=== PATIENT | male | born 1975 | race Caucasian/White ===

== ENCOUNTER → 2020-06-20 16:10 | Outpatient (CLI) | payer OTHER, SELFPAY ==
--- NOTE | ~2020-06-20 | XR_ITS ---
EXAMINATION: XR knee RT 3V DATE: 06/20/2020 16:29 INDICATION: Right knee pain. TECHNIQUE: 3 views of right knee were obtained. COMPARISON: None. FINDINGS: Bone alignment is normal. No fracture. There is mild tricompartmental osteoarthritis charac terized by tiny marginal osteophytes. No knee joint effusion. IMPRESSION: 1. Mild right knee osteoarthritis. Reviewed, dictated and finalized at location A.
== END ==
PROVIDERS: PCP Internal Medicine; Visit Provider Internal Medicine
DX: M17.11 Unilateral primary osteoarthritis, right knee (principal)
CPT/HCPCS: 73562

== ENCOUNTER 2022-09-21 10:29 | Outpatient (CLI) | payer OTHER, SELFPAY ==
--- NOTE | ~2022-09-21 | XR_ITS ---
EXAMINATION: XR lumbar spine 2-3V DATE: 09/21/2022 10:50 INDICATION: Dorsalgia, unspecified TECHNIQUE: Anteroposterior and lateral views of the lumbar spine, and cone-down lateral view of the l umbosacral junction were obtained. COMPARISON: 09/05/2006 FINDINGS: Bone alignment is normal. There is no fracture. There is chronic mild anterior wedging at t he thoracolumbar junction. Small degenerative osteophytes project from the anterior endplates of mult iple vertebral bodies. There is mild loss of intervertebral disc space height at L5-S1. Mild facet radha int osteoarthritis is noted in the lower lumbar spine. IMPRESSION: 1. Mild lumbar spondylosis without acute findings. Reviewed, dictated and finalized at location B.
== END 2022-09-21 10:30 | disposition home or self-care (01) ==
PROVIDERS: PCP Internal Medicine; Visit Provider Internal Medicine
DX: M47.896 Other spondylosis, lumbar region (principal)
CPT/HCPCS: 72100

== ENCOUNTER 2024-06-04 10:56 | Outpatient (CLI) | payer BC, SELFPAY ==
--- OUTSIDE RECORDS SUMMARY | 2024-06-04 12:55 | XMS_ITS | Clinical Summary ---
Author Organization [facility] Address [facility] [place] [address] Care Team Providers Care Parcel Post Weigher Name Role Phone Elijah Martins MD Primary Care Provider [phone] Allergies No known active allergies Medications atorvastatin 40 MG tablet Take 40 mg by mouth daily. 08/21/2019 Active escitalopram 10 MG tablet Take 10 mg by mouth daily. 09/20/2019 Active omeprazole 40 MG capsule Take 40 mg by mouth daily. 08/21/2019 Active valsartan 320 MG tablet Take 320 mg by mouth daily. 08/21/2019 Active omega-3 fatty acid 500 MG capsule Take 500 mg by mouth daily. Active Multiple Vitamins-Minera ls (MULTIVITAMIN ADULT OR) Take 1 tablet by mouth daily. Active HYDROcodone-susy taminophen 5-325 MG tabletIndicatio ns:Acute Pain < 7 Day Supply Take 1-2 tablets by mouth every 4 (four) hours as needed for Pain. Indications: Acute Pain < 7 Day Supply For Moderate Pain 24 tablet 02/12/2020 Active Active Problems No known active problems Immunizations Name Administration Dates Next Due Influenza Adult (Generic) 12/27/2015,2015 Family History Medical History Relation Comments Cancer Father Diabetes Father Hypertension Father Diabetes Maternal Grandfather Hyperlipidemia Maternal Grandfather Diabetes Maternal Grandmother Hypertension Maternal Grandmother Hypertension Mother Diabetes Paternal Grandfather Diabetes Paternal Grandmother Hyperlipidemia Paternal Grandmother Hypertension Paternal Grandmother Relation Status Comments Father Maternal Grandfather Maternal Grandmother Mother Paternal Grandfather Paternal Grandmother Social History Tobacco Use Types Packs/Day Years Used Date Smoking Tobacco: Never Smokeless Tobacco: Never Alcohol Use Standard Drinks/Week Comments Yes 0 (1 standard drink = 0.6 oz pur e alcohol) 2-3/week PHQ-2 Answer Date Recorded PHQ-2 Score - If the patient scores above 3, please move on to questions 3-9 0 02/17/2020 Sex and Gender Information Value Date Recorded Sex Assigned at Not on file Legal Sex Male 8:27 AM CDT Gender Identity Not on file Sexual Orientation Not on file Last Filed Vital Signs Vital Sign Reading Time Taken Comments Blood Pressure 130/83 02/17/2020 10:42 AM RIB MATCHER AND FITTER Pulse 65 02/17/2020 10:42 AM RIB MATCHER AND FITTER Temperature 36.2 C (97.1 F) 02/17/2020 10:16 AM RIB MATCHER AND FITTER Respiratory Rate 16 02/12/2020 11:3 5 AM RIB MATCHER AND FITTER Oxygen Saturation 99% 02/12/2020 11: 35 AM RIB MATCHER AND FITTER Inhaled Oxygen Concentration - - Weight 136.4 kg (300 lb 9.6 oz) 020 10:16 AM RIB MATCHER AND FITTER Height 177.8 cm (5' 10 ) 02/17/2020 10: 16 AM RIB MATCHER AND FITTER Body Mass Index 43.13 02/17/2020 10:16 AM RIB MATCHER AND FITTER Plan of Treatment Health Maintenance Due Date Last Done Comments Colorectal Cancer Screening Colonoscopy (10 Years) 1974 Annual Physical 1977 Hepatitis C 01/06/1992 DTaP, Tdap and Td Vaccines ( 1 - Tdap) 1993 Hepatitis B Vaccines (1 of 3 - 19+ 3-dose series) 1993 COVID-19 Vaccine (2023-2 5 season) 2023 Influenza Adult (#1) 2023 01/09/2019, 12/27/2015, 2015 Zoster Vaccines (1 of 2) 01/06/2024 Meningococcal B Vaccine Aged Out No l onger eligible based on patient's age to complete this topic Meningococcal Vaccine Aged Out No edwin evangelist eligible based on patient's age to complete this topic Pneumococcal Vaccine: Pediatrics (0 to 5 Years) and At-Risk Patients (6 to 64 Years) Aged Out No longer eligible b ased on patient's age to complete this topic RSV Immunizations Under 20 Months Aged Out No longer eligible b ased on patient's age to complete this topic Insurance [employer] Care Teams Parcel Post Weigher Relationship Specialty Start Date End Date Elijah Martins MD [address] [place] [address] PCP - General INTERNAL MEDICINE 11/05/19
--- OUTSIDE RECORDS SUMMARY | 2024-06-04 12:55 | XMS_ITS | Clinical Summary ---
Author Organization [facility] Address [address] [facility] Attn: Epic Prelude ADT [place] [address] Care Team Providers Care Architectural Drafter Name Role Phone Unavailable Primary Care Provider Unavailabl e Medications triamcinolone acetonide (KENALOG) 0.1 % Cream Apply to affected area twice daily 30 Gram 10/30/2021 6:43 PM CDT 2 Active loteprednol etabonate (LOTEMAX) 0.5 % gel ADMINISTER 1 DROP IN EACH EYE 4 TIMES DAILY FOR 7 DAYS, TAPER DIRECTED. 5 Gram 07/19/2022 10:18 AM CDT 3 Active Immunizations Immunization Administration Dates Next Due INFLUENZA VACCINE QUADRIVALENT 6 MOS UP PF IM ,12/03/2021 Social History Tobacco Use Types Packs/Day Years Used Date Smoking Tobacco: Never Assessed Sex and Gender Information Value Date Recorded Sex Assigned at Not on file Legal Sex Male 3:27 PM CDT Gender Identity Not on file Sexual Orientation Not on file Plan of Treatment Health Maintenance Due Date Last Done Comments DTAP/TDAP/TD VACCINES (1 - Tdap) 1993 HEPATITIS B VACCINES (1 of 3 - 19+ 3-dose series) 1993 COLORECTAL SCREENING 2019 Colorectal Cancer Screening 2019 FIT-DNA Q 3 years 2019 FIT/FOBT Q 1 year 2019 Flex Sig/CT Colonography Q 5 years 2019 INFLUENZA VACCINE (#1) 2023 3, 12/03/2021 ZOSTER VACCINE (1 of 2) 01/06/2024 PNEUMOCOCCAL VACCINE 0-49 YEARS Aged Out No longer eligible b ased on patient's age to complete this [place] [address] [employer]
--- OUTSIDE RECORDS SUMMARY | 2024-06-04 12:55 | XMS_ITS | Encounter Summary ---
Author Organization [facility] Address [address] [place] [id number] Care Team Providers Care Production Maintenance Technician Name Role Phone Elijah Martins MD Primary Care Provider [phone] Encounter Details Date Type Department Care Team (Late st Contact Info) Description 02/06/2020 Prep for Procedure [facility] [address] [address] [place], [place] [id number] Jamaal Núñez MD [address] [place], [place] [id number] Social History Tobacco Use Types Packs/Day Years Used Date Smoking Tobacco: Never Smokeless Tobacco: Never Alcohol Use Standard Drinks/Week Comments Yes 0 (1 standard drink = 0.6 oz pur e alcohol) 2-3/week Sex and Gender Information Value Date Recorded Sex Assigned at Not on file Legal Sex Male 8:27 AM CDT Gender Identity Not on file Sexual Orientation Not on file COVID-19 Exposure Response Date Recorded In the last month, have you been in contact with someone who was confirmed or suspected to have Coronavirus / COVID-19? No / Unsure 02/06/2020 1:22 PM PHARMACY CASHIER documented as of this encounter Plan of Treatment Not on file documented as of this encounter Results * PRE-SURGICAL/PRE-PROCEDURE CORONAVIRUS (COVID 19) (02/09/2020 8:27 AM PHARMACY CASHIER) CORONAVIRUS SARS COV 2 PCR (RESP) NOT DETECTED NOT DETECTED 02/10/2020 7:36 PM PHARMACY CASHIER [facility] Comment: A Not Detected (negative) test result for this test means that SARS- CoV-2 RNA was not present in the specimen above the limit of detection. A negative result does not rule out the possibility of COVID-19 and should not be used as the sole basis for treatment or patient management decisions. If COVID-19 is still suspected, based on exposure history together with other clinical findings, re-testing should be considered in consultation with public health authorities. Laboratory test results should always be considered in the context of clinical observations and epidemiological data in making a final diagnosis and patient management decisions. Please review the Fact Sheets and FDA authorized labeling available for health care providers and patients using the following websites: [email or web address]/[email or web address]-19/HCP/NAAT/fact-sheet2 [email or web address]://[email or web address].Connectbeam/home/Covid-19/Patients/NAAT/ fact-sheet2 This test has been authorized by the FDA under an Emergency Use Authorization (EUA) for use by authorized laboratories. Due to the current public health emergency, [employer] is receiving a high volume of samples from a wide variety of swabs and media for COVID-19 testing. In order to serve patients during this public health crisis, samples from appropriate clinical sources are being tested. Negative test results derived from specimens received in non-commercially manufactured viral collection and transport media, or in media and sample collection kits not yet authorized by FDA for COVID-19 testing should be cautiously evaluated and the patient potentially subjected to extra precautions such as additional clinical monitoring, including collection of an additional specimen. Methodology: Nucleic Acid Amplification Test (NAAT) includes RT-PCR or TMA Additional information about COVID-19 can be found at the [employer] website: [email or web address].[email or web address]/Covid19. Test performed at Segment [address] [id number] Director: JULIO C VELA DO,MPH FIRST TEST YES 02/09/2020 10:34 AM [facility] EMPLOYED IN HEALTHCARE YES 02/09/2020 10:34 AM [facility] SYMPTOMATIC DEFINED BY CDC NO 02/09/2020 10:34 AM [facility] DATE OF SYMPTOM ONSET UNKNOWN 02/09/2020 10:36 AM [facility] HOSPITALIZATION STATUS NO 02/09/2020 10:34 AM PHARMACY CASHIER [facility] PATIENT IN ICU NO 02/09/2020 10:34 AM PHARMACY CASHIER [facility] RESIDENT OF CONGREGATE CARE NO 02/09/2020 10:34 AM PHARMACY CASHIER [facility] UNKNOWN 02/09/2020 10:36 AM PHARMACY CASHIER [facility] PATIENT'S RACE WHITE OR 02/09/2020 10:34 AM PHARMACY CASHIER [facility] ETHNICITY NONHISPANIC 02/09/2020 10:34 AM PHARMACY CASHIER [facility] SOURCE (QST) NASOPHARYNGEAL SWAB 02/09/2020 10:34 AM PHARMACY CASHIER [facility] NASOPHARYNGEAL SWAB / Unknown 02/09/2020 8:27 AM PHARMACY CASHIER us Jamaal Núñez MD MICROBIOLOGY - GENERAL ORDERABL ES Final Result [facility] [address] [place] [address], Segment [address] documented in this encounter Visit Diagnoses Diagnosis Preop examination- Primary Preoperative examination, unspecified documented in this encounter Additional Health Concerns Infection Onset Date Last Indicated Resolved Time COVID-19 Rule Out 02/09/2020 02/09/2020 02/10/2020 7:36 PM PHARMACY CASHIER documented as of this encounter Care Teams Production Maintenance Technician Relationship Specialty Start Date End Date Elijah Martins MD [address] [place] [address] PCP - General INTERNAL MEDICINE 11/05/19 documented as of this encounter
--- NOTE | 2024-07-01 21:03 | WPDSLEEPSTUD ---
Sleep Study Date of Study: 06/04/24 Ordering Provider: Tra Licea APRN Interpreting Physician: Mary Ellen Scott MD Sleep Study Type: Split Polysomnogram Height: 1.78 m Weight: 138.346 kg Body Mass Index: 43.7 Neck Circumference (inches): 20 Sumner: 10 Reason for Sleep Study Obstructive sleep apnea, difficulty tolerating CPAP previously, presents for split night study Sleep History Luiz Parra Jr is a 49-year-old man with known obstructive sleep apnea. He has medical comorbidities including hypertension, GERD, depression, hyperlipidemia. He is a icu tech. He had difficulty tolerating CPAP when he initially tried it. His work schedule has changed, now working days. He continues to have daytime sleepiness and nighttime difficulty breathing so he wanted to return for further evaluation. He had 3 previous sleep studies. He has also gained weight. He occasionally awakens from sleep feeling short of breath. He occasionally wakes at night with heartburn, belching or coughing.??He constantly snores, and frequently snores loudly enough that others complain. He rarely has trouble sleeping when he has a cold. He occasionally wakes up gasping for breath during the night. He frequently has breathing problems at night. He occasionally sweats excessively at night. He occasionally notices his heart pounding or beating irregularly during the night. He rarely falls asleep during the day. He never falls asleep involuntarily, never falls asleep while driving. He never experiences loss of muscle tone with strong emotion. He rarely has daytime difficulty at work due to excessive sleepiness. He never feels paralyzed on waking or falling asleep. He never experiences vivid dreams upon waking or falling asleep. He never feels afraid of going to sleep. He rarely has nightmares. He rarely recalls his dreams. He occasionally has thoughts racing through his mind. He occasionally feels sad or depressed. He rarely feels anxiety. He occasionally notices parts of his body jerk. He rarely kicks during the night. He never feels crawling or aching feelings in his legs. He rarely feels leg pain at night. He never has morning jaw pain, never grinds his teeth at night. He occasionally feels bothered by pain during the day, occasionally awakened by pain during the night. He frequently wakes up feeling stiff in the morning, and he occasionally wakes feeling sore or achy. He frequently awakens with pain in his neck, spine, or joints. He has concentration difficulties and fatigue. He is drowsy for 3 hours after waking. His uvula has been enlarged since his tonsillectomy in the late 1980s. Any time it becomes inflamed from allergies or a cold, his airway is partially blocked. He can even touch the front of his tongue with his uvula when it is inflamed. His uvula seems to vibrate easily and worsens his snoring. Normal bedtime is 9:00 p.m., falling asleep within 30 minutes, waking between 1 and 3 times at night. When he awakens at night, he may reposition himself and try to return to sleep. He is usually able to return to sleep within several minutes. Wake time is 6:30 a.m.. He typically gets between 7 and 10 hours of sleep per night. He usually takes naps on weekends, and a nap may last several hours. He does not feel refreshed after a nap. Habits:??Tobacco: Never smoker Caffeine: 4-8 servings per day Alcohol: 0-1 daily Recreational substances: none PMFSH Past Medical History Medical History Obesity Hyperlipidemia Hyperglycemia Right wrist pain Rectal bleeding DEX (obstructive sleep apnea) Morbid obesity Hypertension Hyperlipidemia GERD (gastroesophageal reflux disease) Depression Surgical History Surgical History History of carpal tunnel release of both wrists (~2003) Family History Family History Father Family history of diabetes mellitus in first degree relative Mother No problems noted. Sibling No problems noted. Other Family history of malignant neoplasm of esophagus Family history of thyroid disease Social History Social History Smoking status: Never smoker Second hand tobacco smoke exposure: No Alcohol intake: current Drinks per week: 3 Substance use: never Substance use type: does not use Do You Feel Safe in your Home?: Yes Lack of Transportation: No Lack of Food: Never True Current Housing: I Have Housing Concerned About Future Housing: No Difficulty Paying Gas/Electric Bills: No Difficulty Paying for Meds: No Currently Unemployed: No Education: High School Diploma/GED Difficulty w/ Childcare or Family Care: No Living arrangements: with family Occupation/Education: occupation 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 Gender identity (if verbalized by the patient): Male Medications Home Medications ?Medication ?Instructions ?Recorded ?Confirmed ?Type multivitamin (Daily Multi-Vitamin 1 tablet PO DAILY 12/27/21 04/27/24 History tablet) omega 6-pbm-jjn-fish oil 1,200 mg cap PO 12/27/21 04/27/24 History (144 mg-216 mg) capsule (Fish Oil) valsartan 320 1 tablet PO DAILY #90 tabs 07/24/23 04/27/24 Rx mg-hydrochlorothiazide 12.5 mg tablet escitalopram oxalate 10 mg tablet 10 mg PO DAILY #90 tabs 03/03/24 04/27/24 Rx omeprazole 40 mg capsule,delayed 40 mg PO DAILY #90 caps 03/16/24 04/27/24 Rx release amlodipine 5 mg tablet 5 mg PO DAILY #90 tabs 03/26/24 04/27/24 Rx atorvastatin 40 mg tablet See Rx Instructions .Route 04/01/24 04/27/24 Rx .COMPLEX #90 tabs eszopiclone 3 mg tablet 3 mg PO ONCE #1 tablet 04/27/24 04/27/24 Rx Sleep Procedure A split night polysomnogram using the [employer]Storm SleepHachimenroppi multi-channel system recorded the standard physiologic parameters including EEG, EOG, submentalis EMG, anterior tibialis EMG, EKG, body position, nasal and oral airflow using nasal pressure sensor and thermistor. Respiratory parameters of chest and abdominal movements were recorded with Respiratory Inductance Plethysmography belts. Oxygen saturation was recorded by pulse oximetry. Video monitoring was also performed. Sleep stages, periodic limb movements, and EEG arousals were scored in 30 second epochs according to the criteria of the AASM Scoring Manual. The Apnea-Hypopnea Index was calculated using CMS guidelines for definition of hypopnea while scoring respiratory events. This patient self-administered Lunesta 3 mg at the beginning of the study. After the baseline portion the patient met criteria for a titration with an AHI of 11.5 and desaturation to 79%. His initial mask was a large ResMed AirTouch F20 fullface mask however toward the end of the night he switched it to a medium Mirage Quattro fullface mask which improved his air leak. At CPAP 19 cm, the patient spent 68.5 minutes in bed, 4 minutes awake, 39.5 minutes in non-REM, 25 minutes in REM with a sleep efficiency of 94.2%. The residual apnea-hypopnea index was 6.5. The lowest saturation was 90%. The patient had supine REM at this pressure. Sleep Architecture During the diagnostic portion of the study, the total recording time was 183.5 minutes. The total sleep time was 128.0 minutes. Sleep latency was 29.0 minutes. He had no REM therefore no REM latency. Sleep Efficiency was 69.8%. The patient had 23 awakenings for an awakening index of 10.8. Wake after sleep onset time was 26.5 minutes. The patient spent 17.5 minutes, 13.7% of total sleep time in Stage N1. The patient spent 110.0 minutes, 85.9% in Stage N2. The patient spent 0.5 minutes, 0.4% in Stage N3. The patient spent no time in Stage REM sleep. At 01:53:23 AM the patient was placed on PAP treatment and was titrated at pressures ranging from CPAP 5 to CPAP 19 cm. During the treatment portion of the study, the total recording time was 291.3 minutes. The total sleep time was 235.5 minutes. Sleep latency was 5.0 minutes. REM latency was 150.5 minutes. Sleep Efficiency was 80.8%. Wake after Sleep Onset time was 50.5 minutes. The patient spent 26.0 minutes, 11.0% of total sleep time in Stage N1. The patient spent 171.0 minutes, 72.6% in Stage N2. The patient spent no time in Stage N3. The patient spent 38.5 minutes, 16.3% in Stage REM. Respiratory Analysis During the diagnostic portion of the study, the patient had 15 hypopneas, 10 obstructive apneas, no mixed apneas, and no central apneas for an overall Apnea Hypopnea Index of 11.7 events per hour. The REM Apnea Hypopnea Index was 0. He had no REM on the baseline. The NREM Apnea Hypopnea Index was 11.7. The patient had a Central Apnea Hypopnea Index of 0. The supine apnea-hypopnea index on the baseline was 120. The nonsupine AHI was 7.3. There were no Respiratory Effort Related Arousals.. The Respiratory Disturbance Index is 18.3 events per hour. There was no evidence of Steve-Velasco Respirations. During the treatment portion of the study, the patient had 64 hypopneas, no obstructive apneas, no mixed apneas, and 5 central apneas for an overall Apnea Hypopnea Index of 17.6 events per hour. The REM Apnea Hypopnea Index was 17.1. The NREM Apnea Hypopnea Index was 17.7. The patient had a Central Apnea Hypopnea Index of 1.3. The supine apnea-hypopnea index was 22.3. The nonsupine apnea-hypopnea index was 2.2. There were no Respiratory Effort Related Arousals.The Respiratory Disturbance Index is 20.9 events per hour. There was no evidence of Steve-Velasco Respirations. Arousals During the diagnostic portion of the study, there were a total of 84 arousals for an arousal index of 39.4. There were 9 respiratory arousals for an index of 4.2. There were 24 periodic limb movement arousals for an index of 11.3. There were 22 isolated limb movement arousals for an index of 10.3. There were 31 spontaneous arousals for an index of 14.5. During the treatment portion of the study, there were a total of 112 arousals for an index of 28.5. There were 8 respiratory arousals for an index of 2.0. There were 38 periodic limb movement arousals for an index of 9.7. There were 24 isolated limb movement arousals for an index of 6.1. There were 43 spontaneous arousals for an index of 11.0. Periodic Limb Movements During the diagnostic portion of the study, the patient had 38 isolated limb movements with an index of 17.8. The patient had 79 periodic limb movements with an index of 37.0. The patient had a total of 117 limb movements with a total limb movement index of 54.8. During the treatment portion of the study, the patient had 49 isolated limb movements with an index of 12.5. The patient had 96 periodic limb movements with an index of 24.5. The patient had a total of 145 limb movements with a total limb movement index of 36.9. Oximetry Data During the diagnostic portion of the study, the patient had an average oxygen saturation of 90% in wake with a minimum oxygen saturation of 79% and a maximum oxygen saturation of 98%. The patient had an average oxygen saturation of 89.1% in sleep with a minimum oxygen saturation of 79% and a maximum oxygen saturation of 95%. The patient had 39 oxygen desaturations resulting in an Oxygen Desaturation Index of 18.3. The patient spent 46.1 minutes, 25.1% of total sleep time with an oxygen saturation less than 88%. During the treatment portion of the study, the patient had an average oxygen saturation of 93.5% in wake with a minimum oxygen saturation of 79% and a maximum oxygen saturation of 98%. The patient had an average oxygen saturation of 92.2% in sleep with a minimum oxygen saturation of 78% and a maximum oxygen saturation of 98%. The patient had 85 oxygen desaturations resulting in an Oxygen Desaturation Index of 21.7. The patient spent 16.5 minutes, 5.7 % of total sleep time with an oxygen saturation less than 88%. Snoring Profile Snoring was moderate to loud, eliminated at the optimal pressure. Cardiac Profile During the diagnostic portion of the study, the EKG showed normal sinus rhythm. The average pulse rate was 70.6 bpm. The minimum pulse rate was 58 bpm. The maximum pulse rate was 97 bpm. No arrhythmias noted. During the treatment portion of the study, the EKG showed normal sinus rhythm. The average pulse rate was 60 bpm. The minimum pulse rate was 50 bpm. The maximum pulse rate was 89 bpm. No arrhythmias noted. EEG Profile EEG was unremarkable, no evidence of seizures. Assessment and Plan Assessment and Plan (1) DEX (obstructive sleep apnea): Code(s): G47.33 - Obstructive sleep apnea (adult) (pediatric) Status: Acute Assessment and Plan: This split night sleep study on June 04, 2024 shows mild obstructive sleep apnea, apnea-hypopnea index is 11.7 with desaturation to 79%, no REM on the baseline. He was successfully treated using a medium Mirage Quattro fullface mask and heated humidity with an optimal pressure of CPAP 19 cm. At this pressure, the patient spent 68.5 minutes in bed, 4 minutes awake, 39.5 minutes in non-REM, 25 minutes in REM with a sleep efficiency of 94.2%. The residual apnea-hypopnea index was 6.5. The lowest saturation was 90%. The patient had supine REM at this pressure. Sleep was better consolidated compared to earlier in the night. The patient should be prescribed this ResMed equipment as well as tubing, filters and reservoir. This should be used with all episodes of sleep. Compliance should be reviewed within 31-90 days of starting therapy for usage greater than 4 hours per night greater than 70% of the nights. The patient should be asked about symptoms such as excessive daytime sleepiness, quality of sleep, decreased nocturia, increased mental functioning such as memory, mood, and concentration. Using PAP therapy will allow his uvula to have less friction and vibration during the night, and his uvula may decrease in size. BMI is 43. Weight management is advised. Clinical data suggests that weight loss of 10% can reduce the severity of respiratory events and snoring and improve AHI by as much as 25%. The patient had an elevated number of periodic limb movements during the study, periodic limb movement index was 37 on baseline and 24.5 on the treatment portion. The periodic limb movement arousal index was 11 on baseline and 9 during the treatment portion. His sleep questionnaire indicates that he rarely kicks at night and does not have uncomfortable feelings in his legs at night. Clinical correlation is recommended. His limb movement arousals decreased on PAP and this problem may resolve itself with routine compliance with positive airway pressure therapy. Data The data obtained during this sleep study is adequate for interpretation. Certification This sleep study has been reviewed by a board certified sleep medicine physician.
[2024-07-01 21:06] VITALS: BMI 43.7
== END 2024-06-05 07:33 | disposition home or self-care (01) ==
PROVIDERS: PCP Internal Medicine; Visit Provider Nurse Practitioner Family
DX: G47.33 Obstructive sleep apnea (adult) (pediatric) (principal); G47.10 Hypersomnia, unspecified
CPT/HCPCS: 95811

== ENCOUNTER 2024-09-29 14:11 | Outpatient (CLI) | payer BC, SELFPAY ==
--- NOTE | ~2024-09-29 | XR_ITS ---
3 VIEWS LUMBAR SPINE Ordering provider: Lm Ridley DO History: . M54.50 - Low back pain, unspecified . Comparison: September 22, 2019 FINDINGS: VERTEBRAL BODIES: No visible fracture or subluxation. Degenerative changes of the spine. DISK SPACES: Narrowing of the disc L5-S1 which is increased compared to previous study. SOFT TISSUES: Normal. IMPRESSION: No acute osseous abnormality lumbar spine. Degenerative disc disease at the level of L5-S1. Reviewed, dictated and finalized at location A.
--- OUTSIDE RECORDS SUMMARY | 2024-09-29 14:16 | XMS_ITS | Clinical Summary ---
Author Organization [facility] Address [address] [facility] Attn: Epic Prelude ADT [place] [address] Care Team Providers Care Collection Officer Name Role Phone Unavailable Primary Care Provider [...] Flex Sig/CT Colonography Q 5 years 2019 ZOSTER VACCINE (1 of 2) 01/06/2024 INFLUENZA VACCINE (#1) 2024 12/24/2022, 2021 Insurance RX [employer]
--- OUTSIDE RECORDS SUMMARY | 2024-09-29 14:16 | XMS_ITS | Clinical Summary ---
Author Organization [facility] Address [facility] [place] [address] Care Team Providers Care Airline Pilot/First Officer Name Role Phone Elijah Martins MD Primary Care Provider [phone] Allergies No known active allergies Medications atorvastatin [...] Active Problems No known active problems Immunizations Immunization Administration Dates Next Due Influenza Adult (Generic) [...] Comments Blood Pressure 130/83 02/17/2020 10:42 AM DAIRY LABORATORY TECHNICIAN Pulse 65 02/17/2020 10:42 AM DAIRY LABORATORY TECHNICIAN Temperature 36.2 C (97.1 F) 02/17/2020 10:16 AM DAIRY LABORATORY TECHNICIAN Respiratory Rate 16 02/12/2020 11:3 5 AM DAIRY LABORATORY TECHNICIAN Oxygen Saturation 99% 02/12/2020 11: 35 AM DAIRY LABORATORY TECHNICIAN Inhaled Oxygen Concentration - - Weight 136.4 kg (300 lb 9.6 oz) 020 10:16 AM DAIRY LABORATORY TECHNICIAN Height 177.8 cm (5' 10) 02/17/2020 10: 16 AM DAIRY LABORATORY TECHNICIAN Body Mass Index 43.13 02/17/2020 10:16 AM DAIRY LABORATORY TECHNICIAN Plan of Treatment Health Maintenance Due Date Last Done Comments Colorectal Cancer Screening Colonoscopy (10 Years) 1974 Annual Physical 1977 Hepatitis C 01/06/1992 DTaP, Tdap and Td Vaccines ( 1 - Tdap) 1993 Hepatitis B Vaccines (1 of 3 - 19+ 3-dose series) 1993 COVID-19 Vaccine ( - 2023-2 5 season) 2023 Pneumococcal Vaccine: 50+ Ye ars (1 of 1 - PCV) 01/06/2024 Zoster Vaccines (1 of 2) 01/06/2024 Meningococcal B Vaccine Aged Out No l onger eligible based on patient's age to complete this topic Meningococcal Vaccine Aged Out No edwin evangelist eligible based on patient's age to complete this topic RSV Immunizations Under 20 Months Aged Out No longer eligible based on patient's age to complete this topic Insurance [employer] REIMBURSEMENTS OF [employer]UDY Care Teams Airline Pilot/First Officer Relationship Specialty Start Date End Date Elijah Martins MD [address] [place] [address] PCP - General INTERNAL MEDICINE 11/05/19
--- OUTSIDE RECORDS SUMMARY | 2024-09-29 14:16 | XMS_ITS | Encounter Summary ---
Author Organization [facility] Address [facility] [place] [address] Care Team Providers Care Energy Systems Engineer Name Role Phone Elijah Martins MD Primary Care Provider [phone] Encounter Details Date Type Department Care Team (Late st Contact Info) Description 02/06/[address] [facility] Pre-Admission Testing [place] [address] Jamaal Núñez MD [address] [place] [address] Social History Tobacco Use Types Packs/Day Years [...] COVID-19? No / Unsure 02/06/2020 1:22 PM REGULATORY COMPLIANCE SPECIALIST documented as of this encounter Plan of Treatment Not on file documented as of this encounter Results * PRE-SURGICAL/PRE-PROCEDURE CORONAVIRUS (COVID 19) (02/09/2020 8:27 AM REGULATORY COMPLIANCE SPECIALIST) CORONAVIRUS SARS COV 2 PCR (RESP) NOT DETECTED NOT DETECTED 02/10/2020 7:36 PM REGULATORY COMPLIANCE SPECIALIST [facility] Comment: A Not Detected (negative) test result [...] providers and patients using the following websites: [email or web address]/fact-sheet2 [email or web address]/NAAT/ fact-sheet2 This test has been authorized by the FDA under an Emergency Use Authorization (EUA) for use by authorized laboratories. Due to the current public health emergency, [facility] is receiving a high volume of samples [...] about COVID-19 can be found at the [facility] website: [email or web address]. Test performed at [facility] [address] [address] Director: JULIO C VELA DO,MPH FIRST TEST YES 02/09/2020 10:34 AM [facility] EMPLOYED IN HEALTHCARE YES 02/09/2020 10:34 AM [facility] SYMPTOMATIC DEFINED BY CDC NO 02/09/2020 10:34 AM [facility] DATE OF SYMPTOM ONSET UNKNOWN 02/09/2020 10:36 AM [facility] HOSPITALIZATION STATUS NO 02/09/2020 10:34 AM REGULATORY COMPLIANCE SPECIALIST [facility] PATIENT IN ICU NO 02/09/2020 10:34 AM REGULATORY COMPLIANCE SPECIALIST [facility] RESIDENT OF CONGREGATE CARE NO 02/09/2020 10:34 AM REGULATORY COMPLIANCE SPECIALIST [facility] UNKNOWN 02/09/2020 10:36 AM REGULATORY COMPLIANCE SPECIALIST [facility] PATIENT'S RACE WHITE OR 02/09/2020 10:34 AM REGULATORY COMPLIANCE SPECIALIST [facility] ETHNICITY NONHISPANIC 02/09/2020 10:34 AM REGULATORY COMPLIANCE SPECIALIST [facility] SOURCE (QST) NASOPHARYNGEAL SWAB 02/09/2020 10:34 AM REGULATORY COMPLIANCE SPECIALIST [facility] NASOPHARYNGEAL SWAB / Unknown 02/09/2020 8:27 AM REGULATORY COMPLIANCE SPECIALIST us Jamaal Núñez MD MICROBIOLOGY - GENERAL ORDERABL ES Final Result Performing Organization Address City/State/[facility] Co de Phone Number [facility] [address] [place] [address], [place] [address], documented in this encounter Visit Diagnoses Diagnosis Preop examination- Primary Preoperative examination, unspecified documented in this encounter Additional Health Concerns Infection Onset Date Last Indicated Resolved Time COVID-19 Rule Out 02/09/2020 02/09/2020 02/10/2020 7:36 PM REGULATORY COMPLIANCE SPECIALIST documented as of this encounter Care Teams Energy Systems Engineer Relationship Specialty Start Date End Date Elijah Martins MD [address] [place] [address] PCP - General INTERNAL MEDICINE 11/05/19 documented as of this encounter
== END 2024-09-29 14:12 | disposition home or self-care (01) ==
PROVIDERS: PCP Internal Medicine; Visit Provider Internal Medicine
DX: M51.379 Other intervertebral disc degeneration, lumbosacral region without mention of lumbar back pain or lower extremity pain (principal)
CPT/HCPCS: 72100